=== PATIENT | female | born 1975 | race Caucasian/White ===

== ENCOUNTER 2019-12-24 15:48 | Outpatient (CLI) | payer OTHER, SELFPAY ==
--- NOTE | ~2019-12-24 | MM_ITS ---
EXAMINATION: MM diagnostic vimal BI w adrien HISTORY: Left breast lump, lower left mid breast TECHNIQUE: ML, MLO and cc 3-D tomosynthesis images of both breasts were performed and synthetic 2-D i mages were generated. CAD analysis was submitted and interpreted. COMPARISON: None BREAST PARENCHYMAL COMPOSITION: The breasts are almost entirely fatty. FINDINGS: There are several subcentimeter low-density circumscribed opacities on the right which have benign mammographic appearance. No suspicious mass or architectural distortion, malignant gas cage, skin thickening or retraction of either breast is evident. IMPRESSION: 1. No mammographic evidence of malignancy 2. Comparison with prior mammogram(s) is recommended. BI-RADS Category 0: Incomplete: Needs additional imaging evaluation. Reviewed, dictated and finalized at location A. M ADJUSTER
== END 2019-12-24 15:49 | disposition home or self-care (01) ==
PROVIDERS: PCP Physician Assistant; Visit Provider Physician Assistant
DX: N63.20 Unspecified lump in the left breast, unspecified quadrant (principal)
CPT/HCPCS: 77062; 77066; G0279